=== PATIENT | male | born 1955 | race African-American/Black ===

== ENCOUNTER 2018-11-11 17:08 | Inpatient (IN) | payer MEDICARE ==
[~2018-11-11] VITALS: Ht 177.8 cm; Wt 59.3 kg
[2018-11-11] MEDS ORDERED: ADALAT CC90 MG PO (17:54)
[2018-11-11] MEDS ORDERED: COREG 3.1253.125 MG PO (17:56)
[2018-11-11] MEDS ORDERED: COREG25 MG PO (17:57)
[2018-11-11] MEDS ORDERED: ASPIRIN81 MG PO (17:58)
[2018-11-11] MEDS ORDERED: MULTIGEN FOLIC1 EACH PO (17:58)
[2018-11-11] MEDS ORDERED: ALBUTEROL SULF8.5 GM INH (18:00)
[2018-11-11] MEDS ORDERED: MULTI-DAY VITAM1 TAB PO (18:00)
[2018-11-11 18:33] LABS: BASOPHILS 0.8 % (0-2); EOSINOPHILS 1.9 % (0-7); HEMATOCRIT 33.4 % (42.0-54.0); LYMPHOCYTES 22.8 % (15-50); MCH 29.6 pg (26.0-34.0); MCHC 32.9 g/dL (31.0-37.0); MCV 89.8 fL (80.0-100.0); MEAN PLATELET VOLUME 10.4 fL (7.4-10.4); MONOCYTES 4.5 % (2-11); PLATELET COUNT 128 10x3/uL (130-400); RBC 3.72 10x6/uL (4.20-6.10); RDW 13.6 % (11.5-14.5); WBC 3.6 10x3/uL (4.8-10.8)
[2018-11-11 18:53] LABS: APTT 39.5 SECONDS (22.8-39.4); INR 1.12 (0.85-1.17); PROTIME 13.9 SECONDS (11.6-15.0)
[2018-11-11 18:57] LABS: ALBUMIN 3.4 g/dL (3.4-5.0); ANION GAP 17.1 mmol/L (8-16); BILIRUBIN - TOTAL 0.33 mg/dL (0.2-1.3); CALCIUM 8.5 mg/dL (8.5-10.1); CARBON DIOXIDE 24.1 mmol/L (21.0-32.0); CREATININE - SERUM 11.5 mg/dL (0.6-1.3); POTASSIUM - SERUM 5.2 mmol/L (3.5-5.1); PROTEIN - SERUM 7.1 g/dL (6.4-8.2)
--- NOTE | 2018-11-11 19:40 | NUR ---
INTRODUCED SELF TO PATIENT, PATIENT FAMILY AND FIANCE AT BEDSIDE. PATIENT VERY GROGGY, UNABLE TO ANSWER ALL QUESTIONS. RESP EVEN AND UNLABORED, NO S/SX OF DISCOMFORT. ROOFER METAL IN USE.
[2018-11-11 20:00] VITALS: BP 164/107
[2018-11-12] VITALS (7 sets, daily range): BP systolic 134–184; BP diastolic 89–113; Ht 177.8 cm; Wt 59.3 kg
[2018-11-12 04:56] LABS: BASOPHILS 0.2 % (0-2); EOSINOPHILS 2.3 % (0-7); HEMATOCRIT 30.7 % (42.0-54.0); HEMOGLOBIN 10.1 g/dL (13.5-17.5); IMMATURE GRANULOCYTES 0.2 % (0-5); LYMPHOCYTES 15.7 % (15-50); MCH 29.4 pg (26.0-34.0); MCHC 32.9 g/dL (31.0-37.0); MCV 89.2 fL (80.0-100.0); MEAN PLATELET VOLUME 10.6 fL (7.4-10.4); MONOCYTES 5.6 % (2-11); PLATELET COUNT 107 10x3/uL (130-400); RBC 3.44 10x6/uL (4.20-6.10); RDW 13.7 % (11.5-14.5)
[2018-11-12 04:59] LABS: WBC 4.8 10x3/uL (4.8-10.8)
[2018-11-12 05:01] LABS: ANION GAP 14.6 mmol/L (8-16); CALCIUM 8.1 mg/dL (8.5-10.1); CARBON DIOXIDE 26.2 mmol/L (21.0-32.0); CREATININE - SERUM 9.9 mg/dL (0.6-1.3); POTASSIUM - SERUM 4.8 mmol/L (3.5-5.1)
[2018-11-12 05:03] LABS: INR 1.08 (0.85-1.17); PROTIME 13.5 SECONDS (11.6-15.0)
--- NOTE | 2018-11-12 08:05 | NUR ---
RESUMING PT CARE, PT LAYING IN BED WITH EYES CLOSED, RESPIRATIONS EVEN AND UNLABORED. CALL LIGHT IS IN REACH, WILL CONTINUE TO MONITOR AND FOLLOW PLAN OF CARE.
--- NOTE | 2018-11-12 15:45 | NUR ---
I have reviewed this patient and I concur with the Shift Assessment completed by the Licensed Practical Nurse today this shift.
--- NOTE | 2018-11-12 17:11 | NUR ---
PT HAS NO AUSCULTATABLE BRUIT ON RUE EXCEPT AT WRIST. DR GALDAMEZ ASSESSED AND GAVE NO FURTHER ORDERS BEYOND HEPARIN GTT @ 1000 UNITS/HR
--- NOTE | 2018-11-12 17:38 | NUR ---
HEPARIN GTT INITIATED AT 1000 UNITS/HR - VERIFIED BY ALEX HERNANDEZ RN
--- NOTE | 2018-11-12 20:02 | NUR ---
EVENING ROUNDS COMPLETED. REPORT RECEIVED. PT SITTING UP IN BED WITH EYES OPEN, RR EVEN AND UNLABORED. UPON ENTERING ROOM FOUND PT ATTEMPTING TO AMBULATE AROUND ROOM. INSTRUCTED PT HE WAS A FALL RISK AND HELPED HIM THEN AMBULATE BACK TO HIS BED. INSTRUCTED PT TO USE HIS CALL LIGHT IN THE FUTURE. BED ALARM PLACED ON. NO S/S OF DISTRESS. HEPARIN INFUSING ORDERED. CALL LIGHT IN REACH. WILL CTM.
[2018-11-13 04:00] VITALS: BP 125/52; BP 125/85
--- NOTE | 2018-11-13 04:37 | NUR ---
I have reviewed this patient and I concur with the Shift Assessment completed by the Licensed Practical Nurse today this shift.
--- NOTE | 2018-11-13 07:23 | NUR ---
RESUMING PT CARE, PT IS LAYING IN BED WITH EYES CLOSED, RESPIRATIONS EVEN AND UNLABORED. CALL LIGHT IS IN REACH, WILL CONTINUE TO MONITOR AND FOLLOW PLAN OF CARE.
[2018-11-13 09:23] LABS: CALCIUM 7.9 mg/dL (8.5-10.1); CREATININE - SERUM 9.9 mg/dL (0.6-1.3)
[2018-11-13 09:24] LABS: ANION GAP 19.4 mmol/L (8-16); CARBON DIOXIDE 19.3 mmol/L (21.0-32.0); POTASSIUM - SERUM 5.7 mmol/L (3.5-5.1)
[2018-11-13 09:34] LABS: BASOPHILS 0.5 % (0-2); EOSINOPHILS 1.4 % (0-7); HEMATOCRIT 27.6 % (42.0-54.0); HEMOGLOBIN 9.2 g/dL (13.5-17.5); MCH 29.4 pg (26.0-34.0); MCHC 33.3 g/dL (31.0-37.0); MCV 88.2 fL (80.0-100.0); MEAN PLATELET VOLUME 11.8 fL (7.4-10.4); NEUTROPHILS 74.1 % (40-80); RBC 3.13 10x6/uL (4.20-6.10); RDW 13.9 % (11.5-14.5); WBC 4.2 10x3/uL (4.8-10.8)
[2018-11-13 09:35] LABS: PLATELET COUNT 101 10x3/uL (130-400)
[2018-11-13] MEDS ORDERED: ELIQUIS2.5 MG PO (10:32)
--- NOTE | 2018-11-13 11:31 | OP ---
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 ADDITIONAL DIAGNOSIS: Noncompliance with renal dialysis. PREOPERATIVE NOTE: Mr. Peter is a 62-year-old -Macedonian male from [place], [place]. He is on hemodialysis there in [place] and I am told he is rather noncompliant. I first met him yesterday at [facility], where he was referred with a thrombosed right arm AV fistula. His history was that he had not dialyzed since October 31 and on presentation for dialysis yesterday was found to have a thrombosed fistula. I did do an angiogram and found total occlusion of the cephalic arch and an extensive large amount of organized clot in the fistula. I was able to cross the cephalic arch and I dilated it with a smaller caliber balloon and when I had shown that this could be done, I had him admitted to the hospital, that was yesterday evening and he is brought to the operating room now for an open thrombectomy and hopefully will be able to reopen the cephalic arch and stent it. Under TIVA and local anesthesia with 1% lidocaine, the patient was prepped and draped in sterile manner and an incision made over the fistula just below the antecubital level. The vein was freed from the surrounding structures and controlled with Silastic loops. The vein was opened longitudinally and thrombus removed from the vein in the arm with manual massage and Yashira embolectomy catheter. There was a significant kink or tortuosity in the vein at about the junction of the middle and lower thirds of the humerus. I dilated and macerated clot with 8-mm diameter angioplasty balloon through this portion of the fistula and I was able to cross the occluded cephalic arch and I did find it today to be totally occluded. I dilated the arch with an 8 x 4 Conquest high pressure balloon and the result was suboptimal and I subsequently stented it with an 8 x 10 Viabahn stent. The resulting cephalic arch was very satisfactory. There was still a moderate amount of organized thrombus in the vein in the upper arm and this was removed as best I could with the Yashira embolectomy balloon catheter and with the angioplasty balloon. The vein was flushed with heparinized saline and the patient given 3000 units of heparin systemically. I then tried to remove clot from the fistula distal to the venotomy and found that there were areas of stenosis and tortuosity, which made it difficult to pass the balloon catheter from proximal to distal and it was necessary to place a 6-Indian introducer close to the arterial anastomosis and I was then with a combination of Yashira embolectomy catheters, 8-mm diameter angioplasty balloon and manual massage to remove most of the thrombus. The subsequent angiogram demonstrated a satisfactory lumen. The vein was flushed with heparinized saline. The venotomy was closed with running 6-0 Prolene and when the occluding clamps and Silastic loops were released, flow was reestablished in the fistula. There was good augmentation and good collapse much different than the dramatic improvement from preop. The patient's wound was infiltrated with 0.25% plain Marcaine and closed with interrupted inverted 3-0 Vicryl and then running intracuticular 4-0 Monocryl and Dermabond glue. The site was dressed with Maxorb Ag, Tegaderm, and Cavilon skin OPERATIVE REPORT [id number] LANE PETER prep. The 6-Indian introducer at the JA segment was removed and hemostasis obtained with a 4-0 Prolene [id number] suture. That site and yesterday's access site were dressed with Maxorb Ag, Tegaderm, and Cavilon skin prep. The patient was awakened and then taken to the recovery room, where he was found to have very weak flow in the fistula, although there was a good thrill and bruit preserved at the arterial anastomosis. The patient had about 250 cc blood loss, it was very difficult to estimate, although there was moderate blood loss, a lot of it was clot, and the operation was rather messy with intermittent extrusion of clot from the venotomy. None was replaced at any rate. No drain was used. No surgical specimen submitted for histopathology. I will plan to of course check a PT, PTT, and CBC in the recovery room, and I am starting him on heparin at 1000 units an hour without additional bolus. I will plan to keep him on heparin overnight and reevaluate the fistula tomorrow. I believe that he probably will have dialysis tomorrow at least with his right internal jugular tunneled dialysis catheter, which was placed yesterday and he should probably go home tomorrow hopefully on anticoagulation. TRANSINT:[id number] Voice Confirmation ID: [id number] DOCUMENT ID: [id number] cc: Se abraham [phone] CARMEN GALDAMEZ MD at 1131 CC: SE ABRAHAM and PRAVEEN MONTERO MD [id number] DICTATION DATE: 11/12/181736 BLASTING CAP ASSEMBLER: 11/12/189 ADM IN [facility] [address] [place] [address]
--- NOTE | 2018-11-13 11:50 | NUR ---
I have reviewed this patient and I concur with the Shift Assessment completed by the Licensed Practical Nurse today this shift.
--- NOTE | 2018-11-13 14:37 | MORECARE ---
CASE MANAGEMENT DISCHARGE SUMMARY PATIENT: LANE WALLACE RAY UNIT: [id number] ADM DATE: 11/11/18 AGE: 62 : 55 SEX: M ROOM/BED: D.2109 AUTHOR: NAVYA CONNELL PHYSICIAN: REFERRING PHYSICIAN: CARMEN GALDAMEZ MD DATE OF SERVICE: 11/13/18 Discharge Plan Patient Name: LANE WALLACE Facility: [facility]:[place] : 1955 Planned Disposition: Home Anticipated Discharge Date: 11/13/18 Discharge Date: Expected LOS: 2 Initial Reviewer: [email or web address] Initial Review Date: 11/13/2018 Generated: 11/13/18 3:37 pm Patient Name: LANE WALLACE Page [id number] at 1437 All edits/amendments must be made on the electronic document DICTATION DATE: 11/13/181436 FUNDER: GISELLE 11/13/18 1437 RPT#: [id number] DC DATE: STATUS: ADM IN [facility] [address] [place] [address] END OF REPORT
--- NOTE | 2018-11-13 14:55 | MORECARE ---
CASE MANAGEMENT DISCHARGE SUMMARY PATIENT: LANE WALLACE RAY UNIT: [id number] ADM DATE: 11/11/18 AGE: 62 : 55 SEX: M ROOM/BED: D.2109 AUTHOR: KODOC PHYSICIAN: REFERRING PHYSICIAN: CARMEN GALDAMEZ MD DATE OF SERVICE: 11/13/18 Discharge Plan Patient Name: LANE WALLACE Facility: [facility] : 1955 Planned Disposition: Home Anticipated Discharge Date: 11/13/18 Discharge Date: Expected LOS: 2 Initial Reviewer: [email or web address] Initial Review Date: 11/13/2018 Generated: 11/13/18 3:55 pm DCPIA - Discharge Planning Initial Assessment Updated by MARLI: Fabiano Garcia on 11/13/18 2:48 pm * Is the patient Alert and Oriented? Yes * How many steps to enter\exit or inside your home? * PCP DR. MARGARET HAMM, [facility] * Pharmacy [facility] MAIL ORDER OR RE[facility]AT IN [facility] * Preadmission Environment Home Alone * ADLs Independent * Equipment Nebulizer * Other Equipment NO MEDICAL EQUIPMENT PROVIDER PREFERENCE * List name and contact numbers for known caregivers / representatives who currently or will assist patient after discharge: ARNOLDO HARTMAN DTR, * Verbal permission to speak to the caregivers and representatives has been obtained from the patient. N/A * Community resources currently utilized Other * Please name any agencies selected above. [facility], [facility], [facility], [facility], [facility] WITH TRANSPORT * Additional services required to return to the preadmission environment? No * Can the patient safely return to the preadmission environment? Yes * Has this patient been hospitalized within the prior 30 days at any hospital? No Coverage Notice Reviewer: [id number] - Fabiano Garcia Notice Issued Date-Time: 11/13/2018 10:30 Notice Type: IM Discharge Notice Notice Delivered To: Patient Relationship to Patient: Physical Science Professor Name: Delivery Method: HAND - Hand Delivered Gisselle Days: Prior Verbal Notification: Recipient Understood Notice: Yes Recipient Signature: Yes Med Rec Note Co-signed by Attending: Coverage Notice Comment: Last DP export: 11/13/18 1:37 p Patient Name: LANE WALLACE Page [phone] at 1455 All edits/amendments must be made on the electronic document DICTATION DATE: 11/13/181454 REFRIGERATING ENGINEER HEAD: GISELLE 11/13/181454 RPT#: [id number] DC DATE: STATUS: ADM IN [facility] [address] [place] [address] END OF REPORT
--- NOTE | 2018-11-13 15:04 | MORECARE ---
CASE MANAGEMENT DISCHARGE SUMMARY PATIENT: LANE WALLACE RAY UNIT: [id number] ADM DATE: 11/11/18 AGE: 62 : 55 SEX: M ROOM/BED: D.2106 AUTHOR: KO,DOC PHYSICIAN: REFERRING PHYSICIAN: CARMEN GALDAMEZ MD DATE OF SERVICE: 11/13/18 Discharge Plan Patient Name: LANE WALLACE Facility: [facility]:[place] : 1955 Planned Disposition: Home Anticipated Discharge Date: 11/13/18 Discharge Date: Expected LOS: 2 Initial Reviewer: [email or web address] Initial Review Date: 11/13/2018 Generated: 11/13/18 4:04 pm Comments DCP- Discharge Planning Updated by [email or web address]: Fabiano Garcia on 11/13/18 1:[address] Patient Name: LANE WALLACE Admission Status: Urgent Accout number: [id number] Admission Date: 11-11-2018 : 1955 Admission Diagnosis: Attending: CARMEN GALDAMEZ Current LOS: 2 Anticipated DC Date: 11-13-2018 Planned Disposition: Home Primary Insurance: MEDICARE PART A ONLY Discharge Planning Comments: CM MET WITH PT IN ROOM TO DISCUSS DISCHARGE PLANNING AND NEEDS. PT REPORTS LIVING AT HOME INDEPENDENTLY AND ALONE. PT HAS NEBULIZER THAT HE DOES NOT USE, PT GOES TO [facility] IN [facility] ON FRIDAY, Friday SCHEDULE. PT HAS NO MEDICAL EQUIPMENT PROVIDER PREFERENCE. PT HAS NO OUTSIDE SERVICES ASSISTING IN THE HOME. CM DISCUSSED AVAILABILITY OF HOME HEALTH, REHAB SERVICES AND MEDICAL EQUIPMENT. PT DENIES DISCHARGE NEEDS, REPORTS FAMILY WILL PICK HIM UP FOR DISCHARGE HOME. IMPORTANT MESSAGE FROM MEDICARE PROVIDED AND EXPLAINED. Booking Police Officer: Fabiano Garcia DCPIA - Discharge Planning Initial Assessment Updated by [email or web address]: Fabiano Garcia on 11/13/18 2:58 pm * Is the patient Alert and Oriented? Yes * How many steps to enter\exit or inside your home? * PCP DR. MARGARET HAMM, [facility] * Pharmacy [facility] MAIL ORDER OR [facility] IN [facility] * Preadmission Environment Home Alone * ADLs Independent * Equipment Nebulizer * Other Equipment NO MEDICAL EQUIPMENT PROVIDER PREFERENCE * List name and contact numbers for known caregivers / representatives who currently or will assist patient after discharge: ARNOLDO HARTMAN, DTR, * Verbal permission to speak to the caregivers and representatives has been obtained from the patient. N/A * Community resources currently utilized Other * Please name any agencies selected above. OUTPATIENT DIALYSIS, [facility], [facility], [facility] * Additional services required to return to the preadmission environment? No * Can the patient safely return to the preadmission environment? Yes * Has this patient been hospitalized within the prior 30 days at any hospital? No Coverage Notice Reviewer: [id number] Karen Garcia Notice Issued Date-Time: 11/13/2018 10:30 Notice Type: IM Discharge Notice Notice Delivered To: Patient Relationship to Patient: Hot Mill Roller Name: Delivery Method: HAND - Hand Delivered Gisselle Days: Prior Verbal Notification: Recipient Understood Notice: Yes Recipient Signature: Yes Med Rec Note Co-signed by Attending: Coverage Notice Comment: Last DP export: 11/13/18 1:55 p Patient Name: LANE WALLACE Page [phone] at 1504 All edits/amendments must be made on the electronic document DICTATION DATE: 11/13/18 1504 DUSTING AND BRUSHING MACHINE OPERATOR: GISELLE 11/13/18 1504 RPT#: [id number] DC DATE: STATUS: ADM IN [facility] [address] [place] [address] END OF REPORT
--- NOTE | 2018-11-13 15:26 | MORECARE ---
CASE MANAGEMENT DISCHARGE SUMMARY PATIENT: LANE WALLACE RAY UNIT: [id number] ADM DATE: 11/11/18 AGE: 62 : 55 SEX: M ROOM/BED: D.9122 AUTHOR: KO,DOC PHYSICIAN: REFERRING PHYSICIAN: CARMEN GALDAMEZ MD DATE OF SERVICE: 11/13/18 Discharge Plan Patient Name: LANE WALLACE Facility: [facility]:[place] : 1955 Planned Disposition: Home Anticipated Discharge Date: 11/14/18 Discharge Date: Expected LOS: 3 Initial Reviewer: [id number] Initial Review Date: 11/13/2018 Generated: 11/13/18 4:26 pm Comments DCP- Discharge Planning Updated by [email or web address]: Fabiano Garcia on 11/13/18 2:[address] Patient Name: LANE WALLACE Admission Status: Urgent Accout number: [id number] Admission Date: 11-11-2018 : 1955 Admission Diagnosis: Attending: CARMEN GALDAMEZ Current LOS: 2 Anticipated DC Date: 11-13-2018 Planned Disposition: Home Primary Insurance: MEDICARE PART A ONLY Discharge Planning Comments: CM MET WITH PT IN ROOM TO DISCUSS DISCHARGE PLANNING AND NEEDS. PT REPORTS LIVING AT HOME INDEPENDENTLY AND ALONE. PT HAS NEBULIZER THAT HE DOES NOT USE, PT GOES TO [facility] IN [facility] ON FRIDAY, Friday SCHEDULE. PT HAS NO MEDICAL EQUIPMENT PROVIDER PREFERENCE. PT HAS NO OUTSIDE SERVICES ASSISTING IN THE HOME. CM DISCUSSED AVAILABILITY OF HOME HEALTH, REHAB SERVICES AND MEDICAL EQUIPMENT. PT DENIES DISCHARGE NEEDS, REPORTS FAMILY WILL PICK HIM UP FOR DISCHARGE HOME. IMPORTANT MESSAGE FROM MEDICARE PROVIDED AND EXPLAINED. Policy And Planning Manager: Fabiano Garcia Appended by Fabiano Garcia on 11/13/2018 15:23 CDT: CM NOTIFIED THAT PT'S DISCHARGE IS BEING HELD FOR OBSERVATION OVERNIGHT DUE TO BLEEDING DIALYSIS ACCESS, PLANNED DISCHARGE 11-14-18. JULES MAN DCPIA - Discharge Planning Initial Assessment Updated by [id number]: Fabiano Garcia on 11/13/18 2:58 pm * Is the patient Alert and Oriented? Yes * How many steps to enter\exit or inside your home? * PCP DR[facility] MARGARET HAMM, [facility] * Pharmacy [facility] MAIL ORDER OR [facility] IN [facility] * Preadmission Environment Home Alone * ADLs Independent * Equipment Nebulizer * Other Equipment NO MEDICAL EQUIPMENT PROVIDER PREFERENCE * List name and contact numbers for known caregivers / representatives who currently or will assist patient after discharge: ARNOLDO HARTMAN DTR, * Verbal permission to speak to the caregivers and representatives has been obtained from the patient. N/A * Community resources currently utilized Other * Please name any agencies selected above. [facility]IENT DIALYSIS, [facility], [facility], [facility] * Additional services required to return to the preadmission environment? No * Can the patient safely return to the preadmission environment? Yes * Has this patient been hospitalized within the prior 30 days at any hospital? No Coverage Notice Reviewer: [id number] Karen Garcia Notice Issued Date-Time: 11/13/2018 10:30 Notice Type: IM Discharge Notice Notice Delivered To: Patient Relationship to Patient: Lathe Machinist Name: Delivery Method: HAND - Hand Delivered Gisselle Days: Prior Verbal Notification: Recipient Understood Notice: Yes Recipient Signature: Yes Med Rec Note Co-signed by Attending: Coverage Notice Comment: Last DP export: 11/13/18 2:04 p Patient Name: LANE WALLACE Page [phone] at 1526 All edits/amendments must be made on the electronic document DICTATION DATE: 11/13/181525 RN HEDIS: GISELLE 11/13/181525 RPT#: [id number] DC DATE: STATUS: ADM IN [facility] [address] [place] [address] END OF REPORT
--- NOTE | 2018-11-13 17:00 | MORECARE ---
CASE MANAGEMENT DISCHARGE SUMMARY PATIENT: LANE WALLACE RAY UNIT: [id number] ADM DATE: 11/11/18 AGE: 62 : 55 SEX: M ROOM/BED: D.4582 AUTHOR: KO,DOC PHYSICIAN: REFERRING PHYSICIAN: CARMEN GALDAMEZ MD DATE OF SERVICE: 11/13/18 Discharge Plan Patient Name: LANE WALLACE Facility: [facility]:[place] : 1955 Planned Disposition: Home Anticipated Discharge Date: 11/14/18 Discharge Date: Expected LOS: 3 Initial Reviewer: [email or web address] Initial Review Date: 11/13/2018 Generated: 11/13/18 6:00 pm Comments DCP- Discharge Planning Updated by [email or web address]: Fabiano Garcia on 11/13/18 2:[address] Patient Name: LANE WALLACE Admission Status: Urgent Accout number: [id number] Admission Date: 11-11-2018 : 1955 Admission Diagnosis: Attending: CARMEN GALDAMEZ Current LOS: 2 Anticipated DC Date: 11-13-2018 Planned Disposition: Home Primary Insurance: MEDICARE PART A ONLY Discharge Planning Comments: CM MET WITH PT IN ROOM TO DISCUSS DISCHARGE PLANNING AND NEEDS. PT REPORTS LIVING AT HOME INDEPENDENTLY AND ALONE. PT HAS NEBULIZER THAT HE DOES NOT USE, PT GOES TO [facility] IN [facility] ON FRIDAY, Friday SCHEDULE. PT HAS NO MEDICAL EQUIPMENT PROVIDER PREFERENCE. PT HAS NO OUTSIDE SERVICES ASSISTING IN THE HOME. CM DISCUSSED AVAILABILITY OF HOME HEALTH, REHAB SERVICES AND MEDICAL EQUIPMENT. PT DENIES DISCHARGE NEEDS, REPORTS FAMILY WILL PICK HIM UP FOR DISCHARGE HOME. IMPORTANT MESSAGE FROM MEDICARE PROVIDED AND EXPLAINED. Meat Boner And Slicer: Fabiano Garcia Appended by Fabiano Garcia on 11/13/2018 15:23 CDT: CM NOTIFIED THAT PT'S DISCHARGE IS BEING HELD FOR OBSERVATION OVERNIGHT DUE TO BLEEDING DIALYSIS ACCESS, PLANNED DISCHARGE 11-14-18. JULES MAN DCPIA - Discharge Planning Initial Assessment Updated by [email or web address]: Fabiano Garcia on 11/13/18 2:58 pm * Is the patient Alert and Oriented? Yes * How many steps to enter\exit or inside your home? * PCP DR[facility] MARGARET HAMM, [facility] * Pharmacy [facility] MAIL ORDER OR [facility]GET IN [facility] * Preadmission Environment Home Alone * ADLs Independent * Equipment Nebulizer * Other Equipment NO MEDICAL EQUIPMENT PROVIDER PREFERENCE * List name and contact numbers for known caregivers / representatives who currently or will assist patient after discharge: ARNOLDO HARTMAN DTR, * Verbal permission to speak to the caregivers and representatives has been obtained from the patient. N/A * Community resources currently utilized Other * Please name any agencies selected above. OUTPATIENT DIALYSIS, [facility], [facility], [facility] * Additional services required to return to the preadmission environment? No * Can the patient safely return to the preadmission environment? Yes * Has this patient been hospitalized within the prior 30 days at any hospital? No Coverage Notice Reviewer: [email or web address] Karen Garcia Notice Issued Date-Time: 11/13/2018 10:30 Notice Type: IM Discharge Notice Notice Delivered To: Patient Relationship to Patient: Bilingual Administrative Assistant Name: Delivery Method: HAND - Hand Delivered Gisselle Days: Prior Verbal Notification: Recipient Understood Notice: Yes Recipient Signature: Yes Med Rec Note Co-signed by Attending: Coverage Notice Comment: Last DP export: 11/13/18 2:26 p Patient Name: LANE WALLACE Page [phone] at 1700 All edits/amendments must be made on the electronic document DICTATION DATE: 11/13/181658 PHARMACY RETAIL SUPPORT SPECIALIST: GISELLE 11/13/181658 RPT#: [id number] DC DATE: STATUS: ADM IN [facility] [address] [place] [address] END OF REPORT
[2018-11-13 17:26] VITALS: BP 142/51
[2018-11-13 17:36] VITALS: BP 150/56
--- NOTE | 2018-11-13 19:31 | NUR ---
EVENING ROUNDS COMPLETED. REPORT RECEIVED. PT SITTING UP IN BED WITH EYES OPEN, RR EVEN AND UNLABORED. BED IN LOW POSITION. NO S/S OF DISTRESS. PT CURRENTLY EATING MEAL. INTRODUCED SELF TO PT. PT DENIES FURTHER NEEDS AT THIS TIME. CALL LIGHT IN REACH. WILL CTM.
[2018-11-13 21:17] VITALS: BP 124/85
--- NOTE | 2018-11-13 21:52 | NUR ---
IN RESPONSE TO NURSING MESSAGE, BRUIT, THRILL, PULSE ALL NOTED IN RIGHT UPPER EXTREMITY. MINIMAL BLEEDING NOTED. CURRENT DRESSING REINFORCED WITH 2 BY 2 GAUZE AND LIGHTLY SECURED WITH 3M BRAND MEDIPORE DRESSING TAPE.
[2018-11-14 01:04] VITALS: BP 113/75
--- NOTE | 2018-11-14 02:28 | NUR ---
I have reviewed this patient and I concur with the Shift Assessment completed by the Licensed Practical Nurse today this shift.
[2018-11-14 03:55] VITALS: BP 153/72
[2018-11-14 06:46] LABS: BASOPHILS 0.4 % (0-2); EOSINOPHILS 1.9 % (0-7); HEMATOCRIT 26.1 % (42.0-54.0); HEMOGLOBIN 8.7 g/dL (13.5-17.5); IMMATURE GRANULOCYTES 0.2 % (0-5); LYMPHOCYTES 12.1 % (15-50); MCH 29.3 pg (26.0-34.0); MCHC 33.3 g/dL (31.0-37.0); MCV 87.9 fL (80.0-100.0); MEAN PLATELET VOLUME 11.4 fL (7.4-10.4); NEUTROPHILS 77.4 % (40-80); PLATELET COUNT 105 10x3/uL (130-400); RBC 2.97 10x6/uL (4.20-6.10); RDW 13.8 % (11.5-14.5); WBC 4.6 10x3/uL (4.8-10.8)
[2018-11-14 06:56] LABS: CALCIUM 7.9 mg/dL (8.5-10.1); CREATININE - SERUM 8.5 mg/dL (0.6-1.3)
[2018-11-14 06:59] LABS: ANION GAP 13.8 mmol/L (8-16); CARBON DIOXIDE 26.7 mmol/L (21.0-32.0); POTASSIUM - SERUM 4.5 mmol/L (3.5-5.1)
[2018-11-14 07:56] VITALS: BP 133/85
--- NOTE | 2018-11-14 11:07 | NUR ---
PATIENT IS AWAKE AND ALERT. HE HAS BEEN RESTING QUIETLY ALL MORNING WITH THE BLANKET PULLED OVER HIS HEAD. JUST CHANGED THE DRESSING ON HIS FISTULA ON HIS RIGHT ARM. POSITIVE FOR BRUIT AND THRILL. SKIN IS WARM AND DRY. NO BLEEDING NOTED. PATIENT DENIES ANY OTHER NEEDS AT THIS TIME. HE HAS REPORTED CONSTIPATION AND DR IS AWARE. AT THIS TIME DR IS DECIDING WEATHER TO SEND HIM HOME, OR LET HIM HAVE DIALYSIS FIRST AND THEN GO HOME.
--- NOTE | 2018-11-14 12:06 | NUR ---
IV REMOVED FROM LEFT FOREARM WITH CATHETER INTACT. PATIENT TOLERATED. DISCHARGE TEACHING DONE AND PAPERS SIGNED. PATIENT HAS RIDE ON THE WAY AND HE HAS A SEAT FOR DIALYSIS ON FRIDAY IN [place].
--- NOTE | 2018-11-14 15:21 | NUR ---
PATIENT REPORTS THAT HE IS IN SO MUCH PAIN HE CAN NOT MOVE. CALLED GADIEL VALLE AND SHE ORDERED TYLENOL AND A SUPPOSITORY TO HELP HIM HAVE A BM. HE REPORTS THAT HE HAS NOT IN 4 DAYS. HE HAS BEEN DISCHARGED , HOWEVER HE IS WAITING ON HIS RIDE TO DRIVE FROM [place].
--- NOTE | 2018-11-14 18:26 | NUR ---
PATIENT HAS BEEN BROUGHT DOWNSTAIRS BY WHEEL CHAIR. HE IS GOING HOME WITH FAMILY. TO [facility].HE WENT DOWN [place] BY WHEEL CHAIR. ALL DISCHARGE TEACHING HAS BEEN DONE. PAPERS SIGNED. PATIENT REPORTS THAT HE FINALLY HAD TWO BM'S AND HE FINALLY FEELS SOME RELIEF. ALL PATIENT BELONGINS HAVE BEEN REMOVED FROM THE ROOM.
--- NOTE | 2018-11-16 08:14 | MORECARE ---
CASE MANAGEMENT DISCHARGE SUMMARY PATIENT: LANE WALLACE RAY UNIT: [id number] ADM DATE: 11/11/18 AGE: 62 : 55 SEX: M ROOM/BED: D.2371 AUTHOR: KO,DOC PHYSICIAN: REFERRING PHYSICIAN: CARMEN GALDAMEZ MD DATE OF SERVICE: 11/16/18 Discharge Plan Patient Name: LANE WALLACE Facility: [facility]:Sharon : 1955 Planned Disposition: Home Anticipated Discharge Date: 11/14/18 Discharge Date: 11/14/2018 Expected LOS: 3 Initial Reviewer: [email or web address] Initial Review Date: 11/13/2018 Generated: 11/16/18 9:13 am Comments DCP- Discharge Planning Updated by [email or web address]: Fabiano Bryant on 11/13/18 2:[address] Patient Name: LANE WALLACE Admission Status: Urgent Accout number: [id number] Admission Date: 11-11-2018 : 1955 Admission Diagnosis: Attending: CARMEN GALDAMEZ Current LOS: 2 Anticipated DC Date: 11-13-2018 Planned Disposition: Home Primary Insurance: MEDICARE PART A ONLY Discharge Planning Comments: CM MET WITH PT IN ROOM TO DISCUSS DISCHARGE PLANNING AND NEEDS. PT REPORTS LIVING AT HOME INDEPENDENTLY AND ALONE. PT HAS NEBULIZER THAT HE DOES NOT USE, PT GOES TO [facility] ON FRIDAY, DAY FRIDAY SCHEDULE. PT HAS NO MEDICAL EQUIPMENT PROVIDER PREFERENCE. PT HAS NO OUTSIDE SERVICES ASSISTING IN THE HOME. CM DISCUSSED AVAILABILITY OF HOME HEALTH, REHAB SERVICES AND MEDICAL EQUIPMENT. PT DENIES DISCHARGE NEEDS, REPORTS FAMILY WILL PICK HIM UP FOR DISCHARGE HOME. IMPORTANT MESSAGE FROM MEDICARE PROVIDED AND EXPLAINED. Flat Polisher: Fabiano Bryant Appended by Fabiano Bryant on 11/13/2018 15:23 CDT: CM NOTIFIED THAT PT'S DISCHARGE IS BEING HELD FOR OBSERVATION OVERNIGHT DUE TO BLEEDING DIALYSIS ACCESS, PLANNED DISCHARGE 11-14-18. FABIANO BRYANT CASE MANAGEMENT DCPIA - Discharge Planning Initial Assessment Updated by [email or web address]: Fabiano Bryant on 11/13/18 2:58 pm * Is the patient Alert and Oriented? Yes * How many steps to enter\exit or inside your home? * PCP DR. MARGARET HAMM, [facility] * Pharmacy [facility] * Preadmission Environment Home Alone * ADLs Independent * Equipment Nebulizer * Other Equipment NO MEDICAL EQUIPMENT PROVIDER PREFERENCE * List name and contact numbers for known caregivers / representatives who currently or will assist patient after discharge: ARNOLDO WILSONELL, DTR, * Verbal permission to speak to the caregivers and representatives has been obtained from the patient. N/A * Community resources currently utilized Other * Please name any agencies selected above. [facility], [facility], [place], MWF * Additional services required to return to the preadmission environment? No * Can the patient safely return to the preadmission environment? Yes * Has this patient been hospitalized within the prior 30 days at any hospital? No Coverage Notice Reviewer: [email or web address] Karen Bryant Notice Issued Date-Time: 11/13/2018 10:30 Notice Type: IM Discharge Notice Notice Delivered To: Patient Relationship to Patient: Rn Child Name: Delivery Method: HAND - Hand Delivered Gisselle Days: Prior Verbal Notification: Recipient Understood Notice: Yes Recipient Signature: Yes Med Rec Note Co-signed by Attending: Coverage Notice Comment: Last DP export: 11/13/18 4:00 p Patient Name: LANE WALLACE Page [id number] at 0814 All edits/amendments must be made on the electronic document DICTATION DATE: 11/16/18812 PUMP ASSEMBLER: GISELLE 11/16/18812 RPT#: [id number] DC DATE:11/14/18 STATUS: DIS IN [facility] [address] [place] [address] END OF REPORT
== END 2018-11-14 18:34 | disposition home or self-care (01) | DRG 252 ==
LOC: D.M2 17:08
PROVIDERS: Internal Medicine Nephrology; ADMIT Surgery; ATTEND Surgery
PROC: 5A1D70Z Performance of Urinary Filtration, Intermittent, Less than 6 Hours Per Day (ICD-10-PCS; 2018-11-11)
PROC: 057 Upper Veins, Dilation (ICD-10-PCS; 2018-11-12)
PROC: 05CD0ZZ Extirpation of Matter from Right Cephalic Vein, Open Approach (ICD-10-PCS; principal; 2018-11-12 12:00)
DX: T82.868A Thrombosis due to vascular prosthetic devices, implants and grafts, initial encounter (principal); N18.6 End stage renal disease; I13.2 Hypertensive heart and chronic kidney disease with heart failure and with stage 5 chronic kidney disease, or end stage renal disease; I50.20 Unspecified systolic (congestive) heart failure; I97.620 Postprocedural hemorrhage of a circulatory system organ or structure following other procedure; Y83.8 Other surgical procedures as the cause of abnormal reaction of the patient, or of later complication, without mention of misadventure at the time of the procedure; Z99.2 Dependence on renal dialysis; E78.5 Hyperlipidemia, unspecified; D64.9 Anemia, unspecified; I25.10 Atherosclerotic heart disease of native coronary artery without angina pectoris; J44.9 Chronic obstructive pulmonary disease, unspecified; K21.9 Gastro-esophageal reflux disease without esophagitis